=== PATIENT | male | born 1950 | race Caucasian/White ===

== ENCOUNTER 2017-11-18 10:21 | Observation (INO) | payer MEDICARE, OTHER ==
[2017-11-18 11:09] LABS: ADD MAN DIFF? NO
[2017-11-18 11:12] LABS: WHITE BLOOD COUNT 6.1 10^3/ul (4.8-10.8)
[2017-11-18 11:12] LABS: BASOPHILS % 0.5 % (0.0-2.0); EOSINOPHILS # 0.1 10^3/ul (0.0-0.5); EOSINOPHILS % 1.1 % (0.0-7.0); HEMATOCRIT 39.4 % (42.0-52.0); HEMOGLOBIN 12.9 g/dl (14.0-18.0); LYMPHOCYTES # 1.6 10^3/ul (0.8-2.9); LYMPHOCYTES % 25.2 % (15.0-51.0); MEAN CORPUSCULAR HEMOGLOBIN 28.5 pg (29.0-33.0); MEAN CORPUSCULAR HGB CONC 32.7 g/dl (32.0-37.0); MEAN CORPUSCULAR VOLUME 87.2 fl (82.0-101.0); MEAN PLATELET VOLUME 9.9 fl (7.4-10.4); MONOCYTE # 0.5 10^3/ul (0.3-0.9); MONOCYTES % 8.3 % (0.0-11.0); NEUTROPHILS % 64.4 % (39.0-77.0); PLATELET COUNT 233 10^3/UL (140-415); RED BLOOD COUNT 4.52 10^6/ul (4.70-6.10); RED CELL DISTRIBUTION WIDTH 13.1 % (11.5-14.5)
[2017-11-18 11:16] LABS: INR 1.16; PT RATIO 1.2
[2017-11-18 11:42] LABS: ANION GAP 16 (8-16); BLOOD UREA NITROGEN 18 mg/dl (7-20); CALCIUM 9.1 mg/dl (8.4-10.2); CARBON DIOXIDE 25 mmol/L (21-31); CHLORIDE 103 mmol/L (97-110); CREATINE KINASE 154 IU/L (23-200); CREATININE 0.88 mg/dl (0.61-1.24); POTASSIUM 4.7 mmol/L (3.5-5.1); SODIUM 139 mmol/L (135-144)
[2017-11-18 11:46] LABS: GLUCOSE 456 mg/dl (70-220)
[2017-11-18 11:52] LABS: CK INDEX 2.4; CK-MB 3.74 ng/ml (0.0-2.4); TROPONIN-I 0.022 ng/ml (0.000-0.120)
[2017-11-18 11:53] LABS: B-TYPE NATRIURETIC PEPTIDE 65 PG/ML (0-125); TROPONIN-I 0.022 ng/ml (0.000-0.120)
[2017-11-18] MEDS ORDERED: NITROGLYCERIN (SL) 0.4 MG TAB SL (12:30)
[2017-11-18] MEDS ORDERED: ONDANSETRON 4 MG INJ IV (13:30)
[2017-11-18] MEDS ORDERED: NACL 0.9% 3 ML SYG IV (13:30)
[2017-11-18] MEDS ORDERED: ACETAMINOPHEN 325 MG TAB PO (13:30)
[2017-11-18] MEDS ORDERED: INSULIN GLARGINE [LANTus] (100 UNITS/ML) SYG SC (14:00)
[2017-11-18 14:33] LABS: TROPONIN-I 0.022 ng/ml (0.000-0.120)
[2017-11-18] MEDS: INSULIN ASPART [NOVOLOG] 3 ML PEN SC ×4 (14:44→20:16)
[2017-11-18] MEDS: SOD CHLORIDE 0.9% 1,000 ML IV (15:18)
[2017-11-18] MEDS: NITROGLYCERIN 2% 1 GM OINT PKT TD (15:20)
[2017-11-18] MEDS: ACETAMINOPHEN 325 MG TAB PO (18:09)
[2017-11-18] MEDS: MONTELUKAST 10 MG TAB PO (20:16)
[2017-11-18] MEDS: ATORVASTATIN 80 MG TAB PO (22:25)
[2017-11-18] MEDS: ZOLPIDEM 5 MG TAB PO (22:50)
[2017-11-18 23:09] LABS: CREATINE KINASE 96 IU/L (23-200)
[2017-11-18 23:21] LABS: CK INDEX 2.1; CK-MB 2.04 ng/ml (0.0-2.4); TROPONIN-I 0.026 ng/ml (0.000-0.120)
[2017-11-19] MEDS: INSULIN ASPART [NOVOLOG] 3 ML PEN SC ×4 (08:11→11:43)
[2017-11-19 08:33] LABS: ADD MAN DIFF? NO
[2017-11-19] MEDS: CLOPIDOGREL 75 MG TAB PO (08:40)
[2017-11-19] MEDS: ENOXAPARIN 40 MG/0.4 ML SYG SC (08:40)
[2017-11-19 08:41] LABS: WHITE BLOOD COUNT 6.5 10^3/ul (4.8-10.8)
[2017-11-19 08:41] LABS: BASOPHILS % 0.6 % (0.0-2.0); EOSINOPHILS # 0.2 10^3/ul (0.0-0.5); EOSINOPHILS % 3.5 % (0.0-7.0); HEMATOCRIT 40.3 % (42.0-52.0); HEMOGLOBIN 12.8 g/dl (14.0-18.0); LYMPHOCYTES % 30.7 % (15.0-51.0); MEAN CORPUSCULAR HEMOGLOBIN 27.6 pg (29.0-33.0); MEAN CORPUSCULAR HGB CONC 31.8 g/dl (32.0-37.0); MEAN PLATELET VOLUME 9.6 fl (7.4-10.4); MONOCYTE # 0.6 10^3/ul (0.3-0.9); MONOCYTES % 8.8 % (0.0-11.0); NEUTROPHIL # 3.6 10^3/ul (1.6-7.5); NEUTROPHILS % 55.8 % (39.0-77.0); PLATELET COUNT 241 10^3/UL (140-415); RED BLOOD COUNT 4.63 10^6/ul (4.70-6.10); RED CELL DISTRIBUTION WIDTH 13.2 % (11.5-14.5)
[2017-11-19] MEDS: HYDROCHLOROTHIAZIDE 25 MG TAB PO (08:42)
[2017-11-19] MEDS: BENAZEPRIL 20 MG TAB PO (08:42)
[2017-11-19] MEDS: AMLODIPINE 10 MG TAB PO (08:43)
[2017-11-19] MEDS: METOPROLOL (XL) 50 MG TAB PO (08:43)
[2017-11-19 09:05] LABS: ALANINE AMINOTRANSFERASE 24 IU/L (13-69); ALBUMIN 3.7 g/dl (3.3-4.9); ALBUMIN/GLOBULIN RATIO 1.27; ALKALINE PHOSPHATASE 87 IU/L (42-121); ANION GAP 11 (8-16); ASPARTATE AMINO TRANSFERASE 18 IU/L (15-46); BILIRUBIN,INDIRECT 0.3 mg/dl (0-1.1); BILIRUBIN,TOTAL 0.3 mg/dl (0.2-1.3); BLOOD UREA NITROGEN 17 mg/dl (7-20); CALCIUM 9.4 mg/dl (8.4-10.2); CARBON DIOXIDE 31 mmol/L (21-31); CHLORIDE 104 mmol/L (97-110); CHOL/HDL RATIO 2.8 RATIO; CHOLESTEROL 154 mg/dl (100-200); CREATININE 0.77 mg/dl (0.61-1.24); GLUCOSE 184 mg/dl (70-220); HDL CHOLESTEROL 54 mg/dl (31-75); LDL CHOLESTEROL,CALCULATED 69 mg/dl; POTASSIUM 5.2 mmol/L (3.5-5.1); SODIUM 141 mmol/L (135-144); TOTAL PROTEIN 6.6 g/dl (6.1-8.1); TRIGLYCERIDES 155 mg/dl (0-149)
[2017-11-19] MEDS: ACETAMINOPHEN 325 MG TAB PO (10:22)
[2017-11-19] MEDS: INSULIN GLARGINE [LANTus] (100 UNITS/ML) SYG SC (11:38)
== END 2017-11-19 15:52 | disposition home or self-care (01) ==
LOC: E/R 10:21 → TEL 13:04
DX: R55 Syncope and collapse (principal); I10 Essential (primary) hypertension; E78.5 Hyperlipidemia, unspecified; E11.9 Type 2 diabetes mellitus without complications; Z79.4 Long term (current) use of insulin; I25.10 Atherosclerotic heart disease of native coronary artery without angina pectoris; I25.2 Old myocardial infarction
CPT/HCPCS: 36415; 71045; 80048; 80053; 80061; 82550; 82553; 82962; 83036; 83880; 84484; 85025; 85610; 93005; 93306; 99217; 99285-25; G0378